=== PATIENT | male | born 1960 | race Caucasian/White ===

== ENCOUNTER 2021-05-13 08:31 | Day surgery (SDC) | payer OTHER, SELFPAY ==
[2021-05-08 10:32] VITALS: BMI 30.9
--- NOTE | 2021-05-09 14:43 | P.CONAN_ITS ---
Documented by User: Kim Gsos NP 05/09/21 14:43 HPI - Anesthesia Eval Consult details Narrative: 61yo M for Colonoscopy [facility] Past Medical History Medical History Asthma COVID-19 vaccine series completed Elevated cholesterol Hypothyroid Kidney donor Surgical History Surgical History H/O colonoscopy History of nephrectomy, left Social History Social History Are you a primary reservoir caretaker to a significant other at home: No Do you presently have visiting nurse or other home services: No Patient Tobacco Use Status: Former Tobacco user Quit Date: 1992 Tobacco use type: Cigarette Use of substances other than those prescribed or required for medical reasons: No Have you been hit, kicked, punched, or otherwise hurt by someone within the past year? If so, by whom?: No Are you DNR?: No Advance Directives: No Advance Directives Information Provided: Yes (brochure mailed) Advance Directives on File: No Recently lost weight without trying: No Eating poorly because of decreased appetite: No Nutrition Risks: No Nutritional Risk Poor oral hygiene: No Meds Allergies Allergy/AdvReac Type Severity Reaction Status Date / Time No Known Allergies Allergy Verified 05/07/21 15:50 Home Medications Medication Instructions Recorded Confirmed Last Taken Type atorvastatin 20 mg tablet 20 mg PO BEDTIME 05/07/21 05/07/21 Unknown History albuterol sulfate 90 mcg/actuation 2 puff INHALATION Q4-6H PRN 05/08/21 05/08/21 Unknown History aerosol inhaler (Ventolin HFA) levothyroxine 100 mcg tablet 100 mcg PO 4XW 05/08/21 05/08/21 Unknown History levothyroxine 88 mcg tablet 88 mcg PO 3XW 05/08/21 05/08/21 Unknown History multivitamin 1 tab PO DAILY 05/08/21 05/08/21 Unknown History omega 6-dqs-xlm-fish oil 1,000 mg 1 cap PO DAILY 05/08/21 05/08/21 Unknown History (120 mg-180 mg) capsule (Fish Oil) Exam Exam Date and Time: May 09, 2021 1443 Height,Weight and Vital Signs: Height 5 ft 6 in Weight 87.09 kg Assessment and Plan Assessment Anesthesia Assessment: Chart Reviewed Documented by User: Angelo Ruth MD 05/13/21 10:03 PMFSH Past Medical History Medical History Asthma COVID-19 vaccine series completed Elevated cholesterol Hypothyroid Kidney donor Family History Family history of problems with anesthesia: No Surgical History Surgical History H/O colonoscopy History of nephrectomy, left History of Problems with Anesthesia: No Social History Social History Are you a primary reservoir caretaker to a significant other at home: No Do you presently have visiting nurse or other home services: No Patient Tobacco Use Status: Former Tobacco user Quit Date: 1992 Tobacco use type: Cigarette Use of substances other than those prescribed or required for medical reasons: No Have you been hit, kicked, punched, or otherwise hurt by someone within the past year? If so, by whom?: No Are you DNR?: No Advance Directives: No Advance Directives Information Provided: Yes (brochure mailed) Advance Directives on File: No Recently lost weight without trying: No Eating poorly because of decreased appetite: No Nutrition Risks: No Nutritional Risk Poor oral hygiene: No Meds Allergies Allergy/AdvReac Type Severity Reaction Status Date / Time No Known Allergies Allergy Verified 05/07/21 15:50 Home Medications Medication Instructions Recorded Confirmed Last Taken Type atorvastatin 20 mg tablet 20 mg PO BEDTIME 05/07/21 05/07/21 Unknown History albuterol sulfate 90 mcg/actuation 2 puff INHALATION Q4-6H PRN 05/08/21 05/08/21 Unknown History aerosol inhaler (Ventolin HFA) levothyroxine 100 mcg tablet 100 mcg PO 4XW 05/08/21 05/08/21 Unknown History levothyroxine 88 mcg tablet 88 mcg PO 3XW 05/08/21 05/08/21 Unknown History multivitamin 1 tab PO DAILY 05/08/21 05/08/21 Unknown History omega 3-wpm-mna-fish oil 1,000 mg 1 cap PO DAILY 05/08/21 05/08/21 Unknown History (120 mg-180 mg) capsule (Fish Oil) Exam Airway Mallampati Class: III TM Dist: >3cm Neck ROM: Full Assessment and Plan Assessment Anesthesia Assessment: Anesthesia Plan Discussed Final Anesthetic Review Family History of Problems with Anesthesia: No History of Problems with Anesthesia: No NPO: Yes ASA Class: II Final Preanesthetic Review: No Changes in Pt Med Stat, Meds/Allgs Chart Reviewed, Consent Obtained/Reviewed and Anes Risks/Benef Reviewed Patient Risk: Intermediate Procedure Risk: Low Anesthetic Plan Anesthetic Plan: MAC: Disposition: Standard PACU
--- NOTE | 2021-05-13 09:20 | ECG_ITS ---
Test Reason : IRREG RHYTHM Blood Pressure : / mmHG Vent. Rate : 065 BPM Atrial Rate : 065 BPM P-R Int : 144 ms QRS Dur : 092 ms QT Int : 404 ms P-R-T Axes : 073 059 -30 degrees QTc Int : 420 ms Sinus rhythm with Premature supraventricular complexes Incomplete right bundle branch block T wave abnormality, consider inferior ischemia Abnormal ECG No previous ECGs available Referred By: Angelo Ruth Electronically Signed By:AL CALLAHAN
[2021-05-13 09:24] VITALS: BMI 30.9
[2021-05-13 09:59] VITALS: BP 137/97; PULSE 78; RESP 18; TEMP 37.2; O2SAT 98; BMI 30.9
[2021-05-13] MEDS: Lactated Ringers 1,000 ML 100 ML IVCONT (10:40)
[2021-05-13 11:33] VITALS: BP 99/57; PULSE 68; RESP 16; TEMP 36.1; O2SAT 97
--- NOTE | 2021-05-13 11:33 | P.BOP_ITS ---
Brief Operative Note Date of Service: 05/13/21 Pre-op diagnosis: Screening Post-op diagnosis: other (Rectal polyps) Procedure: Colonoscopy to the cecum with bx/removal of polyps Surgeon: Glen Prakash Anesthesia: MAC Was an [employer] Field Supervisor used for this Procedure?: No Estimated blood loss (mL): 2.0 Pathology: other (A. Rectal polyps) Condition: stable Disposition: PACU
[2021-05-13 11:45] VITALS: BP 117/66; PULSE 60; RESP 16; TEMP 36.1; O2SAT 98
--- NOTE | 2021-05-13 22:35 | OP_ITS ---
SURGEON: Glen Prakash MD INDICATIONS: The patient presents for evaluation of colorectal cancer screening. Full consent obtained from him for this, including risks of bleeding and perforation. PREOPERATIVE DIAGNOSIS: Colorectal cancer screening. POSTOPERATIVE DIAGNOSIS: PROCEDURE PERFORMED: Colonoscopy to the cecum with biopsy and removal of polyps. ESTIMATED BLOOD LOSS: COMPLICATIONS: ANESTHESIA: Monitored anesthesia care. ASSISTANTS: SPECIMENS: POSTOPERATIVE DIAGNOSES: Colorectal cancer screening, small colon polyps, diverticulosis and internal hemorrhoids. DESCRIPTION OF PROCEDURE: The patient was placed in the left lateral decubitus position. The digital rectal exam revealed no abnormalities. The Olympus video pediatric colonoscope was entered into the rectum and advanced easily to the cecum. Once in the cecum, I did identify normal-appearing cecal pouch with appendiceal orifice and a normal-appearing ileocecal valve. The entire cecum and ileocecal valve appeared normal. There was transillumination of light deep in the right lower quadrant. The scope was slowly withdrawn assessing all mucosal surfaces carefully. Preparation was excellent. There was a mild amount of sigmoid diverticulosis. I did not visualize any sign of colitis nor angiodysplasia. The only polyps I visualized were in the rectum. There were 2 approximately 4 mm grossly hyperplastic polyps, which were each biopsied and completely removed with cold biopsy forceps. I did not visualize any other polyps. In the rectum, scope was retroflexed visualizing internal hemorrhoids, but no other pathology. The scope was straightened and withdrawn from the patient. He tolerated the procedure well and was returned to the recovery area in stable condition. IMPRESSION: 1. Small rectal polyps, status post biopsy removal. 2. Diverticulosis. 3. Internal hemorrhoids. PLAN: The results of the biopsies will be checked. If these are hyperplastic I would recommend a followup colonoscopy in 10 years. If they happen to be tubular adenomas, I would recommend a followup coloscopy in 5 years. He will otherwise see me on a p.r.n. basis. MD JESSIE Soto/CARSON / [id number] MTDD
== END 2021-05-13 12:34 | disposition home or self-care (01) ==
PROVIDERS: PCP Internal Medicine; Visit Provider Internal Medicine
PROC: 0DJD8ZZ Inspection of Lower Intestinal Tract, Via Natural or Artificial Opening Endoscopic (ICD-10-PCS; CPT 45378; principal; 2021-05-13 09:50)
DX: Z12.11 Encounter for screening for malignant neoplasm of colon (principal); K62.1 Rectal polyp; K57.30 Diverticulosis of large intestine without perforation or abscess without bleeding; K64.8 Other hemorrhoids; J45.909 Unspecified asthma, uncomplicated; E78.5 Hyperlipidemia, unspecified; E03.9 Hypothyroidism, unspecified; Z79.899 Other long term (current) drug therapy; Z52.4 Kidney donor; Z87.891 Personal history of nicotine dependence
CPT/HCPCS: 45380; 88305; 93005

== ENCOUNTER 2023-10-07 14:08 | Outpatient (AMB) | payer OTHER, SELFPAY ==
--- NOTE | 2023-10-07 14:09 | A.OFFVIS_ITS ---
Intake Visit Reasons: elevated PSA Intake Note: New patient is present for Elevated PSA Recent PSA: 05/2023 4.08 Last PSA: 12/2022 5.24 Recent A1C- 5.6 05/2023 Geophysical Operator Required: No Accompanied by: Self / Same As Patient Allergies No Known Allergies Allergy (Verified 10/07/23 14:10) HPI Comments Details: Enrike is a very pleasant male. He is a patient of . He is seen for the following urologic conditions - elevated PSA Discussed PSA variability BERNARD today 2+ prostate soft Plan repeat PSA in 6 months Elevated PSA - 01/08 5.1, 06/09 4.1 COUNT INCLUDES THE [facility] Medical History Pure hypercholesterolemia, unspecified Prediabetes Other specified hypothyroidism Obesity, unspecified Elevated PSA, less than 10 ng/ml Contact with and (suspected) exposure to other hazardous substances Chronic obstructive pulmonary disease, unspecified Acquired absence of kidney COVID-19 vaccine series completed Kidney donor Hypothyroid Elevated cholesterol Asthma Surgical History History of nephrectomy, left H/O colonoscopy Social History Are you a primary primary care nurse to a significant other at home: No Do you presently have visiting nurse or other home services: No Patient Tobacco Use Status: Former Tobacco user Tobacco use type: Cigarette Review of Systems Const Denies chills and Denies fever(s) Card Reports no additional complaints and Denies syncope Resp Denies cough GI Denies abdominal pain and Denies heartburn Reports as per HPI and Denies change in libido Neuro Denies syncope Psych Denies change in libido Endo Denies change in libido Physical Exam Const General: cooperative, healthy appearing, comfortable and no acute distress Orientation/consciousness: patient oriented x3 HEENT Face and sinus: Yes normal facial exam Mouth: moist mucous membranes Neck Neck: Yes normal visual inspection, Yes full ROM and Yes trachea midline Chest Chest palpation & inspection: normal inspection of the chest Resp Effort & Inspection: normal respiratory effort, able to speak in complete sentences and no respiratory distress GI Inspection: Yes normal to inspection Rectal Exam - Male: Yes normal sphincter tone and Yes prostate normal Male General Exam: Yes normal external exam Penis: normal penis and circumcised Meatus: meatus normal Scrotum: scrotum normal Testes: Testes normal Back/Spine/Pelvis Cervical Spine: normal cervical lordosis Thoracic/Lumbar Spine: thoracic and lumbar spine normal to inspection Skin General skin exam: no rashes or lesions noted Neuro General: patient oriented x3, gait normal, tone normal and moves all extremities Extrem General: Yes normal to inspection and Yes capillary refill normal Assessment & Plan Assessment & Plan (1) Elevated PSA: Code(s): R97.20 - Elevated prostate specific antigen [PSA] Category: Medical Plan Six-month repeat PSA Patient Instructions: Imaging studies, laboratory and physical exam results were discussed and reviewed in detail. No major barriers to patient understanding were identified. An opportunity to ask questions regarding the treatment plan was provided. All questions were answered. The patient expressed understanding and agreement with the above treatment plan. The patient is aware they should contact our office by phone for worsening of their current condition or the appearance of new urologic symptoms. Compliance is encouraged with any medications and followup testing that is ordered. It is a privilege to participate in the urologic care of your patient. If you have any questions or concerns regarding treatment for the above conditions, or other urologic issues, please do not hesitate to contact me. The office telephone contact is [phone]. This note is constructed using voice recognition software. While every effort has been made to ensure accuracy cigarette packing machine operator errors may have been included. Yours sincerely, Dr Mani Ortiz MD, [facility] - Urology Providers of Expert, Compassionate Care for the Genitourinary System Coding Level of Care Code New Pt Level 3 (75356) Diagnoses Elevated PSA R97.20
== END 2023-10-07 15:32 | disposition home or self-care (01) ==
PROVIDERS: PCP Internal Medicine; Visit Provider Urology
DX: R97.20 Elevated prostate specific antigen [PSA] (principal)
CPT/HCPCS: 99203

== ENCOUNTER → 2023-10-07 14:08 | Outpatient (BNVA) | payer OTHER, SELFPAY | PROVIDERS: PCP Internal Medicine; Visit Provider Urology | DX: R97.20 Elevated prostate specific antigen [PSA] (principal) | CPT/HCPCS: 99202 ==

== ENCOUNTER 2024-04-08 13:42 | Outpatient (REF) | payer OTHER, SELFPAY ==
--- OUTSIDE RECORDS SUMMARY | 2024-04-08 14:09 | XMS_ITS | Patient Health Record ---
Author Organization [facility] Address [address] [place] [address] Care Team Providers Care Sales Recruitment Specialist Name Role Phone Lynette Castillo M.D. Primary Care Provider Un available Javier Prakash Unavailable [phone] ALLERGIES No Known Allergies REASON FOR REFERRAL No Information MEDICATIONS Medication SIG (Take, Route, Frequency, Duration) Notes Start Date End Date Status Fish Oil Active Multivitamin Active Levothyroxine Sodium Active Albuterol Active Dulcolax (colon prep) 5 MG take at 3:00 p.m and 7:00p.m. Orally two tablets twice a day for one day for 1 day 04/26/2021 Active MiraLax (colon prep) 17 GM/SCOOP 1 238GM bottle mixed with Gatorade or Crystal Light Orally begin at 5:00 p.m. the day before the procedure for 1 day 04/26/2021 Active Atorvastatin Calcium 20 MG 1 tablet Oral ly Once a day for 30 day(s) Active IMMUNIZATIONS Vaccine Route Administration Date Status Comme nts Influenza Unknown 10/17/2020 Administered SOCIAL HISTORY Tobacco Use: Social History Observation Description Date Details (start date - stop date) Former Smoker NA - NA Sex Assigned At : Social History Observation Description Sex Assigned At Unknown Tobacco Use/Smoking Question Answer Notes Patient is a former smoker How long has it been since you last smoked? > 10 years Alcohol Screen Question Answer Notes Did you have a drink containing alcohol in the p ast year? No Points 0 Interpretation Negative PROBLEMS Problem Type ICD Code Onset Dates Problem Status W/U Status Risk SNOMED Code Notes Problem Encounter for screening for malignant neoplasm of colon (Z12.11) Active confirmed 274401660 Problem Preprocedural examination (Z01.818) Active confirmed 445350391368130 Problem Diverticulosis of colon (K57.30) Active confirmed Diverticulosi s of colon (490941785) PLAN OF TREATMENT Future Test Test Name Order Date COLONOSCOPY 04/04/2021 Insurance Providers Payer Name Payer Address Payer Phone Subscriber Number Group Number Insured Name Patient Relationship to Insured Coverage Start Date Coverage End Date [facility] [employer] [address] [place] [address] [id number] RADHA ASTUDILLO Self - patient is the insured MEDICAL (GENERAL) HISTORY Medical History History ICD Code Asthma Hyperlipidemia Hypothyroidism Denies MD,DM,CVA,renal disease Neg screening colonoscopy age 49 [address] Payton King Surgical History Surgery Date(Month/Year) Left kidney donor for his sister 1993
== END 2024-04-08 13:43 | disposition home or self-care (01) ==
LOC: HO.LAB 13:42
PROVIDERS: Visit Provider Urology
DX: Z13.89 Encounter for screening for other disorder (principal)

== ENCOUNTER 2024-04-08 14:03 | Outpatient (AMB) | payer OTHER, SELFPAY ==
--- NOTE | 2024-04-08 14:03 | A.OFFVIS_ITS ---
Intake Visit Reasons: 6m/PSA Intake Note: Pt presents to office today through telehealth for 6 month follow up for psa Allergies No Known Allergies Allergy (Verified 04/08/24 14:04) HPI Comments Details: Enrike is a very pleasant male. He is a patient of Dr. Fischer. He is seen for the following urologic conditions - elevated PSA Telemedicine Evaluation 15 min Consultation Doxim[employer] Aníbal Video Had PSA checked at [place] per report 6.0 Higher than prior readings Recommend prostate MRI with assessment for biopsy Will organize Elevated PSA - 01/08 5.1, 06/09 4.1, 04/12 6.0 [facility] Medical History Pure hypercholesterolemia, unspecified Prediabetes Other specified hypothyroidism Obesity, unspecified Elevated PSA, less than 10 ng/ml Contact with and (suspected) exposure to other hazardous substances Chronic obstructive pulmonary disease, unspecified Acquired absence of kidney COVID-19 vaccine series completed Kidney donor Hypothyroid Elevated cholesterol Asthma Surgical History History of nephrectomy, left H/O colonoscopy Social History Are you a primary insurance healthcare representative to a significant other at home: No Do you presently have visiting nurse or other home services: No Patient Tobacco Use Status: Former Tobacco user Tobacco use type: Cigarette Review of Systems Const All systems reviewed & are unremarkable except as noted in HPI and below Reports no additional complaints Resp Reports no additional complaints GI Reports no additional complaints Reports as per HPI Musc Reports no additional complaints Physical Exam Telemedicine evaluation Appropriate responses Regular breathing rate and rhythm HEENT Head: Yes normal to inspection Ears: hearing grossly normal bilaterally Eyes General: appearance normal, both eyes and all related structures Neck Neck: Yes normal visual inspection Chest Chest palpation & inspection: normal inspection of the chest Resp Effort & Inspection: normal respiratory effort and able to speak in complete sentences Telehealth Telehealth Telehealth Platform: [employer] Location of provider rendering services: practice address Location of patient: address on file Patient Identification confirmed using: Name, : Yes Telehealth method: video Patient verbally consented to treatment: Yes Patient verbally consented to billing insurance company: Yes Patient informed of any privacy concerns related to visit: Yes Minutes spent on Phone/Video with Pt.: 15 Assessment & Plan Assessment & Plan (1) Elevated PSA: Code(s): R97.20 - Elevated prostate specific antigen [PSA] Category: Medical Plan First-line would be MRI prostate to assess for suspicious lesions Recommend biopsy for PI-RADS 3 or greater Orders: Orders MR Prostate wo/w con Today R97.20 - Elevated prostate specific antigen [PSA] Patient Instructions: This note is constructed using voice recognition software. While every effort has been made to ensure accuracy instructor bus trolley and taxi errors may have been included. Imaging studies, laboratory and physical exam results were discussed and reviewed in detail. No major barriers to patient understanding were identified. An opportunity to ask questions regarding the treatment plan was provided. All questions were answered. The patient expressed understanding and agreement with the above treatment plan. The patient is aware they should contact our office by phone for worsening of their current condition or the appearance of new urologic symptoms. Compliance is encouraged with any medications and followup testing that is ordered. It is a privilege to participate in the urologic care of your patient. If you have any questions or concerns regarding treatment for the above conditions, or other urologic issues, please do not hesitate to contact me. The office telephone contact is [phone]. Sincerely, Dr Mani Ortiz MD, [facility] - Urology Compassionate Specialist Care for the Genitourinary System Coding Level of Care Code Tele Est Pt Level 3 (27406) Diagnoses Elevated PSA R97.20
== END 2024-04-08 14:21 | disposition home or self-care (01) ==
LOC: HO.HUSH 14:03
PROVIDERS: PCP Internal Medicine; Visit Provider Urology
DX: R97.20 Elevated prostate specific antigen [PSA] (principal)
CPT/HCPCS: 99213

== ENCOUNTER → 2024-05-16 08:42 | Outpatient (BNV) | payer OTHER, SELFPAY | PROVIDERS: PCP Internal Medicine; Visit Provider Radiology Diagnostic Radiology | DX: R97.20 Elevated prostate specific antigen [PSA] (principal) | CPT/HCPCS: 72197 ==

== ENCOUNTER 2024-05-16 09:06 | Outpatient (REF) | payer OTHER, SELFPAY ==
--- NOTE | ~2024-05-16 | MR_ITS ---
EXAMINATION: MR PROSTATE WITHOUT THEN WITH IV CONTRAST HISTORY: R97.20 - Elevated prostate specific antigen [PSA] TECHNIQUE: 1.5T body coil survey of the pelvis was performed. Phase array coil imaging of the prostate was performed in multiplanar high resolution axial, coronal, sagittal fast spin echo T2 and axial T1 weighted imaging sequences. Axial diffusion imaging at intermediate and high field performed with ADC mapping. Next, 8.5 mL Gadavist was given by intravenous infusion, and dynamic axial imaging performed. COMPARISON: There are no prior studies for comparison. CLINICAL DATA: Most recent PSA: 5.94 ng/mL on 04/07/2024 PSA Density: 0.089 ng/mL squared Prostate Biopsy: None reported FINDINGS: Prostate size: 5.8 x 5.7 x 3.9 cm. Calculated prostate volume is 67.0 mL. Hemorrhage: None. Transitional Zone: There is moderate heterogeneous nodular hypertrophy of the transitional zone. Peripheral Zone: There are 2 areas of interest in the right peripheral zone as detailed below: Lesion #1, measuring 8 mm in the right posteromedial peripheral zone in the mid gland (series 7, image 21): DWI PI-RADS v2.1 score: 4 T2 PI-RADS v2.1 score: 4 DCE PI-RADS v2.1 score: + Overall PI-RADS v2.1 score: 4 Capsular contact: yes Extracapsular extension: None Seminal vesicle invasion: None Neurovascular bundle involvement: None Lesion #2, measuring 6 mm in the right posterolateral peripheral zone in the mid gland/apex (series 7, image 22): DWI PI-RADS v2.1 score: 4 T2 PI-RADS v2.1 score: 4 DCE PI-RADS v2.1 score: + Overall PI-RADS v2.1 score: 4 Capsular contact: yes Extracapsular extension: No definite Seminal vesicle invasion: None Neurovascular bundle involvement: None Seminal Vesicles/Ejaculatory Ducts: Symmetric and normal in signal and caliber. Pelvic Lymph Nodes: No obturator or internal iliac lymph nodes meeting size criteria for adenopathy. Marrow Signal: Normal marrow signal and enhancement without focal lesion identified. Additional findings: There is a small fat-containing left inguinal hernia. MR/MR Prostate wo/w con IMPRESSION: There are 2 lesions in the right peripheral zone as described above, highly suspicious for clinically significant prostate carcinoma. PI-RADS 4: High (clinically significant cancer is likely to be present) PI-RADS Assessment Categories PI-RADS 1: Very low (clinically significant cancer is highly unlikely to be present) PI-RADS 2: Low (clinically significant cancer is unlikely to be present) PI-RADS 3: Intermediate (the presence of clinically significant cancer is equivocal) PI-RADS 4: High (clinically significant cancer is likely to be present) PI-RADS 5: Very high (clinically significant cancer is highly likely to be present) [employer]. MR Prostate Imaging Reporting and Data System version 2.1. [email or web address] Electronically signed by: Glen Montalvo MD 05/16/2024 11:20 AM EDT
[2024-05-16] MEDS: gadobutroL 10 ML VIAL IVPUSH (10:37)
== END 2024-05-16 09:07 | disposition home or self-care (01) ==
LOC: HO.MRI 09:06
PROVIDERS: PCP Internal Medicine; Visit Provider Urology
DX: R97.20 Elevated prostate specific antigen [PSA] (principal)
CPT/HCPCS: 72197; A9585

== ENCOUNTER 2024-05-27 11:22 | Outpatient (AMB) | payer OTHER, SELFPAY ==
--- NOTE | 2024-05-27 11:34 | MHC.OFFVIS ---
Intake Visit Reasons: follow up/MRI/PSA Intake Note: Patient is present for MRI/PSA Urology Medication:NONE Antibiotic Allergy:NONE Blood Thinner:NONE Fuel Cell Builder Required: No Allergies No Known Allergies Allergy (Verified 05/27/24 11:36) HPI Comments Details: Enrike is a very pleasant male. He is a patient of Dr. Fischer. He is seen for the following urologic conditions - elevated PSA Had PSA checked at [place]. per report 6.0 Higher than prior readings Recommend prostate MRI with assessment for biopsy Will organize Elevated PSA - 01/08 5.1, 06/09 4.1, 04/12 6.0 [facility] Medical History Pure hypercholesterolemia, unspecified Prediabetes Other specified hypothyroidism Obesity, unspecified Elevated PSA, less than 10 ng/ml Contact with and (suspected) exposure to other hazardous substances Chronic obstructive pulmonary disease, unspecified Acquired absence of kidney COVID-19 vaccine series completed Kidney donor Hypothyroid Elevated cholesterol Asthma Surgical History History of nephrectomy, left H/O colonoscopy Social History Are you a primary critical care specialist to a significant other at home: No Do you presently have visiting nurse or other home services: No Patient Tobacco Use Status: Former Tobacco user Tobacco use type: Cigarette Review of Systems Const Denies chills and Denies fever(s) Card Reports no additional complaints and Denies syncope Resp Denies cough GI Denies abdominal pain and Denies heartburn Reports as per HPI and Denies change in libido Neuro Denies syncope Psych Denies change in libido Endo Denies change in libido Physical Exam Const General: cooperative, healthy appearing, comfortable and no acute distress Orientation/consciousness: patient oriented x3 HEENT Face and sinus: Yes normal facial exam Mouth: moist mucous membranes Neck Neck: Yes normal visual inspection, Yes full ROM and Yes trachea midline Chest Chest palpation & inspection: normal inspection of the chest Resp Effort & Inspection: normal respiratory effort, able to speak in complete sentences and no respiratory distress GI Inspection: Yes normal to inspection Back/Spine/Pelvis Cervical Spine: normal cervical lordosis Thoracic/Lumbar Spine: thoracic and lumbar spine normal to inspection Skin General skin exam: no rashes or lesions noted Neuro General: patient oriented x3, gait normal, tone normal and moves all extremities Extrem General: Yes normal to inspection and Yes capillary refill normal Assessment & Plan Assessment & Plan (1) Elevated PSA: Code(s): R97.20 - Elevated prostate specific antigen [PSA] Category: Medical Plan Plan prostate MRI Medications: New finasteride 5 mg PO DAILY 90 tabs 1RF 90 days N13.8 - Other obstructive and reflux uropathy, N40.1 - Benign prostatic hyperplasia with lower urinary tract symptoms, R33.9 - Retention of urine, unspecified, R97.20 - Elevated prostate specific antigen [PSA] Patient Instructions: This note is constructed using voice recognition software. While every effort has been made to ensure accuracy dental appliance mechanic errors may have been included. Imaging studies, laboratory and physical exam results were discussed and reviewed in detail. No major barriers to patient understanding were identified. An opportunity to ask questions regarding the treatment plan was provided. All questions were answered. The patient expressed understanding and agreement with the above treatment plan. The patient is aware they should contact our office by phone for worsening of their current condition or the appearance of new urologic symptoms. Compliance is encouraged with any medications and followup testing that is ordered. It is a privilege to participate in the urologic care of your patient. If you have any questions or concerns regarding treatment for the above conditions, or other urologic issues, please do not hesitate to contact me. The office telephone contact is [phone]. Sincerely, Dr Mani Ortiz MD, [facility] - Urology Compassionate Specialist Care for the Genitourinary System Coding Level of Care Code Est Pt Level 4 (06106) Diagnoses Elevated PSA R97.20
--- OUTSIDE RECORDS SUMMARY | 2024-05-27 12:21 | XMS_ITS | Patient Health Record ---
Author Organization [facility] Address [address] [place] [address] Care Team Providers Care Structural Test Engineer Name Role Phone Lynette Castillo M.D. Primary Care Provider Un available Javier Prakash Unavailable [phone] Allergies No Known Allergies Reason For Referral No Information Medications Medication SIG (Take, Route, Frequency, Duration) Notes [...] Once a day for 30 day(s) Active Immunizations Vaccine Route Administration Date Status Comme nts Influenza Unknown 10/17/2020 Administered Social History Tobacco Use: Social History Observation Description Date Details (start date - stop date) Former Smoker NA - NA Tobacco Use/Smoking Question Answer Notes Patient is a former smoker How long has it been since you last smoked? > 10 years Alcohol Screen Question Answer Notes Did you have a drink containing alcohol in the p ast year? No Points 0 Interpretation Negative Section Notes: 1992 quit tobacco, no sig al cohol Problems Problem Type SNOMED Code ICD Code Onset Dates Problem Status W/U Status Risk Notes Problem 524388582 Encounter for screening for malignant neoplasm of colon (Z12.11) Active confirmed Problem 339335341981393 Preprocedural examination (Z01.818) Active confirmed Problem Diverticulosis of colon (644365913) Diverticulosis of colon (K57.30) Active confirmed Plan Of Treatment Future Test Test Name Order Date COLONOSCOPY 04/04/2021 Insurance Providers Payer Name Payer Address Payer Phone Subscriber Number Group Number Insured Name Patient Relationship to Insured Coverage Start Date Coverage End Date [facility] [employer]UM [address] [place] [address] [id number] RADHA ASTUDILLO Self - patient is the insured Medical (General) History Medical History History ICD Code Asthma Hyperlipidemia Hypothyroidism Denies DE,DM,CVA,renal disease Neg screening colonoscopy age 49 with [address] Payton King Surgical History Surgery Date(Month/Year) Left kidney donor for his sister 1993
== END 2024-05-27 12:05 | disposition home or self-care (01) ==
LOC: HO.HUSH 11:22
PROVIDERS: PCP Internal Medicine; Visit Provider Urology
DX: R97.20 Elevated prostate specific antigen [PSA] (principal)
CPT/HCPCS: 99214

== ENCOUNTER → 2024-05-27 11:22 | Outpatient (BNVA) | payer OTHER, SELFPAY | PROVIDERS: PCP Internal Medicine; Visit Provider Urology | DX: R97.20 Elevated prostate specific antigen [PSA] (principal) | CPT/HCPCS: 99212 ==

== ENCOUNTER 2024-09-27 09:23 | Outpatient (AMB) | payer OTHER, SELFPAY ==
--- NOTE | 2024-09-27 09:27 | A.OFFVIS_ITS ---
Intake Visit Reasons: 4m/PSA Intake Note: Patient is present for 4 MO FOLLOW UP Urology Medication:FINASTERIDE Antibiotic Allergy:NONE Blood Thinner:NONE Imaging done :MRI 05/16/24 Labs done 08/31/24 : PSA 3.5 Library Clerical Assistant Required: No Accompanied by: Self / Same As Patient Allergies No Known Allergies Allergy (Verified 09/27/24 09:28) HPI Comments Details: Enrike is a very pleasant male. He is a patient of Dr. Fischer. He is seen for the following urologic conditions - elevated PSA - lower urinary tract symptoms Telemedicine Evaluation 15 min Consultation [employer] Video Follow-up MRI Had PSA checked at [place]. per report 6.0 Higher than prior readings Repeat PSA 3.5 Follow-up six-month Elevated PSA - 01/08 5.1, 06/09 4.1, 04/12 6.0, 09/09 3.5 Prostate MRI 05/10 - 8 mm in the right posteromedial peripheral zone in the mid gland - PI-RADS 4 PFSH Medical History Pure hypercholesterolemia, unspecified Prediabetes Other specified hypothyroidism Obesity, unspecified Elevated PSA, less than 10 ng/ml Contact with and (suspected) exposure to other hazardous substances Chronic obstructive pulmonary disease, unspecified Acquired absence of kidney COVID-19 vaccine series completed Kidney donor Hypothyroid Elevated cholesterol Asthma Surgical History History of nephrectomy, left H/O colonoscopy Social History Are you a primary behavioral health care coordinator to a significant other at home: No Do you presently have visiting nurse or other home services: No Patient Tobacco Use Status: Former Tobacco user Tobacco use type: Cigarette Review of Systems Const All systems reviewed & are unremarkable except as noted in HPI and below Reports no additional complaints Resp Reports no additional complaints GI Reports no additional complaints Reports as per HPI Musc Reports no additional complaints Physical Exam Telemedicine evaluation Appropriate responses Regular breathing rate and rhythm HEENT Head: Yes normal to inspection Ears: hearing grossly normal bilaterally Eyes General: appearance normal, both eyes and all related structures Neck Neck: Yes normal visual inspection Chest Chest palpation & inspection: normal inspection of the chest Resp Effort & Inspection: normal respiratory effort and able to speak in complete sentences Telehealth Telehealth Telehealth Platform: [employer] Location of provider rendering services: practice address Location of patient: address on file Patient Identification confirmed using: Name, : Yes Telehealth method: voice only Patient verbally consented to treatment: Yes Patient verbally consented to billing insurance company: Yes Patient informed of any privacy concerns related to visit: Yes Minutes spent on Phone/Video with Pt.: 15 Assessment & Plan Assessment & Plan (1) Elevated PSA: Code(s): R97.20 - Elevated prostate specific antigen [PSA] Category: Medical (2) Weak urinary stream: Code(s): R39.12 - Poor urinary stream Category: Medical Plan Six-month follow-up PSA Orders: Orders PSA,Total (Free>4and<10) 6 Months R97.20 - Elevated prostate specific antigen [PSA] Patient Instructions: This note is constructed using voice recognition software. While every effort has been made to ensure accuracy bacteriologist pharmaceutical errors may have been included. Imaging studies, laboratory and physical exam results were discussed and reviewed in detail. No major barriers to patient understanding were identified. An opportunity to ask questions regarding the treatment plan was provided. All questions were answered. The patient expressed understanding and agreement with the above treatment plan. The patient is aware they should contact our office by phone for worsening of their current condition or the appearance of new urologic symptoms. Compliance is encouraged with any medications and followup testing that is ordered. It is a privilege to participate in the urologic care of your patient. If you have any questions or concerns regarding treatment for the above conditions, or other urologic issues, please do not hesitate to contact me. The office telephone contact is [phone]. Sincerely, Dr Mani Ortiz MD, [facility] - Urology Compassionate Specialist Care for the Genitourinary System Coding Level of Care Code Tele Est Pt Level 3 (51884) Complex EM visit Add On G2211 Diagnoses Elevated PSA R97.20 Weak urinary stream R39.12
--- OUTSIDE RECORDS SUMMARY | 2024-09-27 09:57 | XMS_ITS | Patient Health Record ---
Author Organization [facility] Address [address] [place] [address] Care Team Providers Care Bolt Sawyer Name Role Phone Lynette Castillo M.D. Primary Care Provider Un available Javier Prakash Unavailable [phone] Allergies No Known Allergies Reason For Referral [...] Problem Status W/U Status Risk Notes Problem [id number] Encounter for screening for malignant neoplasm of colon (Z12.11) Active confirmed Problem [id number] Preprocedural examination (Z01.818) Active confirmed Problem Diverticulosis of colon (125127361) Diverticulosis of colon (K57.30) Active confirmed Plan Of Treatment Future Test Test Name Order Date COLONOSCOPY 04/04/2021 Insurance Providers Payer Name Payer Address Payer Phone Subscriber Number Group Number Insured Name Patient Relationship to Insured Coverage Start Date Coverage End Date [facility] [employer]UM [address] [place] [id number] RADHA ASTUDILLO Self - patient is the insured Medical (General) History Medical History History ICD Code Asthma Hyperlipidemia Hypothyroidism Denies CT,DM,CVA,renal disease Neg screening colonoscopy age 49 [address] Payton King Surgical History Surgery Date(Month/Year) Left kidney donor for his sister 1993
== END 2024-09-27 15:41 | disposition home or self-care (01) ==
LOC: HO.HUSH 09:23
PROVIDERS: PCP Internal Medicine; Visit Provider Urology
DX: R97.20 Elevated prostate specific antigen [PSA] (principal); R39.12 Poor urinary stream
CPT/HCPCS: 99213; G2211